=== PATIENT | male | born 1980 | race Hispanic/Latino ===

== ENCOUNTER 2019-05-09 23:32 | Emergency (ER) | payer OTHER ==
[2019-05-10 00:14] LABS: Absolute Lymphocytes (CBC) 0.9 K/uL (0.7-4.9); Basophils % 0.4 % (0-1.3); Hematocrit 46.8 % (39.6-49.0); Lymphocytes % 9.1 % (15.3-44.8); MPV 9.2 fL (7.6-11.3); Monocytes % 4.7 % (3.3-12.3); RBC Red Blood Cell Count 5.14 M/uL (4.33-5.43)
[2019-05-10 00:24] LABS: Albumin 4.7 g/dL (3.4-5.0); Bilirubin Direct 0.2 mg/dL (0-0.2); Bilirubin Total 0.7 mg/dL (0.2-1.0); Potassium 3.6 mmol/L (3.5-5.1); Protein, Total 8.5 g/dL (6.4-8.2)
[2019-05-10] MEDS ORDERED: MAGNE/ALUM HYDROXD 30 ML UCUP ONE (00:38)
[2019-05-10] MEDS ORDERED: FAMOTIDINE 20 MG/2 ML VIAL IV ONE (00:38)
[2019-05-10] MEDS ORDERED: LIDOCAINE VISCOUS 2% SOLN 15 ML UDC ONE (00:40)
[2019-05-10 01:09] LABS: Blood Morphology Comment NOT SEEN (NOT SEEN); Platelet Estimate ADEQ
[2019-05-10] MEDS ORDERED: KETOROLAC 30 MG/ML INJ ONE (01:27)
--- NOTE | 2019-05-10 02:06 | EDPHYS ---
Physician Documentation [facility] Name: Kody Fowler Age: 38 yrs Sex: Male : 1980 Arrival Date: 05/09/2019 Time: 23:36 Bed 20 Private MD: ED Physician Gilbert Fish HPI: 05/10 00:19 This 38 yrs old Male presents to ER via Ambulatory with complaints of kb Abdominal Pain, Vomiting/Diarrhea. 00:19 The patient presents with abdominal pain in the epigastric area. Onset: The kb symptoms/episode began/occurred this morning. The symptoms do not radiate. Associated signs and symptoms: none. The symptoms are described as constant. Modifying factors: The symptoms are alleviated by nothing, the symptoms are aggravated by nothing. Severity of pain: At its worst the pain was moderate severe in the emergency department the pain is unchanged. The patient has experienced similar episodes in the past, multiple times. The patient has not recently seen a physician. Pt reports epigastric pain after eating pizza this morning. States he has had the exact same pain several times in the past and has been evaluated at the [facility]. States they told him it could be ulcers. . Historical: - Allergies: 05/09 23:46 No Known Allergies; ak1 - Home Meds: 23:46 None [Active]; ak1 - PMHx: 23:46 Ulcers; ak1 - PSHx: 23:46 Hernia repair; ak1 - Immunization history:: Adult Immunizations unknown. - Social history:: Smoking status: Patient/guardian denies using tobacco. - Ebola Screening: : No symptoms or risks identified at this time. ROS: 05/10 00:18 Constitutional: Negative for fever, chills, and weight loss, ENT: Negative for injury, kb pain, and discharge, Neck: Negative for injury, pain, and swelling, Cardiovascular: Negative for chest pain, palpitations, and edema, Respiratory: Negative for shortness of breath, cough, wheezing, and pleuritic chest pain, Back: Negative for injury and pain, : Negative for injury, bleeding, discharge, and swelling, MS/Extremity: Negative for injury and deformity, Skin: Negative for injury, rash, and discoloration, Neuro: Negative for headache, weakness, numbness, tingling, and seizure. Abdomen/GI: Positive for abdominal pain, Negative for nausea, vomiting, and diarrhea, constipation, abdominal cramps, abdominal distension, anorexia. Exam: 00:18 Head/Face: Normocephalic, atraumatic. Neck: Trachea midline, no thyromegaly or masses kb palpated, and no cervical lymphadenopathy. Supple, full range of motion without nuchal rigidity, or vertebral point tenderness. No Meningismus. Chest/axilla: Normal chest wall appearance and motion. Nontender with no deformity. No lesions are appreciated. Cardiovascular: Regular rate and rhythm with a normal S1 and S2. No gallops, murmurs, or rubs. Normal PMI, no JVD. No pulse deficits. Respiratory: Lungs have equal breath sounds bilaterally, clear to auscultation and percussion. No rales, rhonchi or wheezes noted. No increased work of breathing, no retractions or nasal flaring. Back: No spinal tenderness. No costovertebral tenderness. Full range of motion. Skin: Warm, dry with normal turgor. Normal color with no rashes, no lesions, and no evidence of cellulitis. MS/ Extremity: Pulses equal, no cyanosis. Neurovascular intact. Full, normal range of motion. Neuro: Awake and alert, GCS 15, oriented to person, place, time, and situation. Cranial nerves II-XII grossly intact. Motor strength 5/5 in all extremities. Sensory grossly intact. Cerebellar exam normal. Normal gait. 00:18 Constitutional: The patient appears alert, awake, uncomfortable. 00:18 Abdomen/GI: Inspection: abdomen appears normal, Bowel sounds: normal, in all quadrants, Palpation: soft, in all quadrants, moderate abdominal tenderness, in the epigastric area. Vital Signs: 05/09 23:43 BP 122 / 77; Pulse 53; Resp 20; Temp 97.8; Pulse Ox 100% on R/A; Weight 95.25 kg (R); ak1 Height 6 ft. 1 in. (185.42 cm) (R); Pain 08/08; 05/10 00:40 BP 142 / 82; Pulse 54; Resp 19 S; Pulse Ox 99% on R/A; cc3 01:30 BP 120 / 82; Pulse 61; Resp 17 S; Pulse Ox 96% on R/A; Pain 2/10; cc3 02:15 BP 122 / 75; Pulse 60; Resp 16 S; Pulse Ox 98% on R/A; Pain 0/10; cc3 05/09 23:43 Body Mass Index 27.71 (95.25 kg, 185.42 cm) ak1 MDM: 05/09 23:40 Patient medically screened. 05/10 00:18 Data reviewed: vital signs, nurses notes. Data interpreted: Pulse oximetry: on room air kb is 100 %. Interpretation: normal. 02:05 Counseling: I had a detailed discussion with the patient and/or guardian regarding: the kb historical points, exam findings, and any diagnostic results supporting the discharge/admit diagnosis, lab results, radiology results, the need for outpatient follow up, a family practitioner, to return to the emergency department if symptoms worsen or persist or if there are any questions or concerns that arise at home. 05/09 23:48 Order name: Basic Metabolic Panel; Complete Time: 00:30 kb 05/09 23:48 Order name: CBC with Diff; Complete Time: 01:10 kb 05/09 23:48 Order name: Hepatic Function; Complete Time: 00:30 kb 05/09 23:48 Order name: Lipase; Complete Time: 00:30 kb 05/10 00:21 Order name: Manual Differential; Complete Time: 01:10 EDMS 07 00:31 Order name: CT Abd/Pelvis - IV Contrast Only kb 05/09 23:48 Order name: IV Saline Lock; Complete Time: 00:03 kb 05/09 23:48 Order name: Labs collected and sent; Complete Time: 00:03 kb 05/10 00:17 Order name: EKG; Complete Time: 00:17 kb 05/10 00:17 Order name: EKG - Nurse/Tech; Complete Time: 00:38 kb Administered Medications: 00:25 Drug: Pepcid 20 mg Route: IVP; Site: right antecubital; cc3 01:05 Follow up: Response: No adverse reaction; Pain is unchanged, physician notified cc3 00:25 Drug: GI Cocktail without - (Maalox Suspension 30 ml, Lidocaine Liquid 2 % 15 cc3 ml) Route: PO; 01:05 Follow up: Response: No adverse reaction; Pain is unchanged, physician notified cc3 01:10 Drug: TORadol - Ketorolac 15 mg Route: IVP; Site: right antecubital; cc3 01:30 Follow up: Response: No adverse reaction; Pain is decreased cc3 Disposition: 21:22 Co-signature as Attending Physician, Gilbert Fish MD. Disposition: 05/10/19 02:05 Discharged to Home. Impression: Upper abdominal pain, unspecified. - Condition is Stable. - Discharge Instructions: Abdominal Pain, Adult, [id number]. - Prescriptions for Tramadol 50 mg Oral Tablet - take 1 tablet by ORAL route every 8 hours as needed; 12 tablet. Zofran 4 mg Oral Tablet - take 1 tablet by ORAL route every 6 hours As needed; 10 tablet. - Medication Reconciliation Form, Thank You Letter, Antibiotic Education, Prescription Opioid Use form. - Follow up: Emergency Department; When: As needed; Reason: Worsening of condition. Follow up: Private Physician; When: 2 - 3 days; Reason: Recheck today's complaints, Continuance of care, Re-evaluation by your physician. Signatures: Dispatcher [employer] EDMT Billie Canales, SUSAN FLORES-Betty Fernandez RN RN ak1 Gilbert Fish MD MD Cortney Nguyen cc3 Corrections: (The following items were deleted from the chart) 02:22 02:05 05/10/2019 02:05 Discharged to Home. Impression: Upper abdominal pain, cc3 unspecified. Condition is Stable. Forms are Medication Reconciliation Form, Thank You Letter, Antibiotic Education, Prescription Opioid Use. Follow up: Emergency Department; When: As needed; Reason: Worsening of condition. Follow up: Private Physician; When: 2 - 3 days; Reason: Recheck today's complaints, Continuance of care, Re-evaluation by your physician. kb
--- NOTE | 2019-05-10 02:06 | ER ---
Nurse's Notes [facility] Name: Kody Fowler Age: 38 yrs Sex: Male : 1980 Arrival Date: 05/09/2019 Time: 23:36 Bed 20 Private MD: Diagnosis: Upper abdominal pain, unspecified Presentation: 05/09 23:44 Presenting complaint: Patient states: epigastric pain since 0900 after eating pizza for ak1 breakfast. pt c/o N/V/D. Transition of care: patient was not received from another setting of care. Onset of symptoms was May 09, 2019. Risk Assessment: Do you want to hurt yourself or someone else? Patient reports no desire to harm self or others. Initial Sepsis Screen: Does the patient meet any 2 criteria? No. Patient's initial sepsis screen is negative. Does the patient have a suspected source of infection? No. Patient's initial sepsis screen is negative. Care prior to arrival: None. 23:44 Acuity: JENN 3 ak1 23:44 Method Of Arrival: Ambulatory ak1 Triage Assessment: 23:46 General: Appears in no apparent distress. Behavior is calm, cooperative. Pain: ak1 Complains of pain in epigastric area. Historical: - Allergies: 23:46 No Known Allergies; ak1 - Home Meds: 23:46 None [Active]; ak1 - PMHx: 23:46 Ulcers; ak1 - PSHx: 23:46 Hernia repair; ak1 - Immunization history:: Adult Immunizations unknown. - Social history:: Smoking status: Patient/guardian denies using tobacco. - Ebola Screening: : No symptoms or risks identified at this time. Screenin:46 Abuse screen: Denies threats or abuse. Denies injuries from another. Nutritional ak1 screening: No deficits noted. Tuberculosis screening: No symptoms or risk factors identified. Fall Risk None identified. Assessment: 05/10 00:08 General: Appears in no apparent distress. uncomfortable, Behavior is cooperative, cc3 appropriate for age. Pain: Complains of pain in epigastric area. Neuro: Level of Consciousness is awake, alert, obeys commands, Oriented to person, place, time, situation, Appropriate for age. Cardiovascular: Capillary refill < 3 seconds Patient's skin is warm and dry. Rhythm is sinus bradycardia. Respiratory: Airway is patent Respiratory effort is even, unlabored, Respiratory pattern is regular, symmetrical. GI: Abdomen is flat, Bowel sounds present X 4 quads. Abd is soft and non tender X 4 quads. : No signs and/or symptoms were reported regarding the genitourinary system. EENT: No signs and/or symptoms were reported regarding the EENT system. Derm: Skin is intact, is healthy with good turgor, Skin is pink, warm \T\ dry. normal, Skin temperature is warm. Musculoskeletal: Circulation, motion, and sensation intact. Range of motion: intact in all extremities. 01:05 Reassessment: Patient appears in no apparent distress at this time. Patient and/or cc3 family updated on plan of care and expected duration. Pain level reassessed. Patient is alert, oriented x 3, equal unlabored respirations, skin warm/dry/pink. Patient came back from CT scan department, awaiting result. Patient said he is still having epigastric pain, JODI Canales informed, new order made and carried out. 02:20 Reassessment: Patient appears in no apparent distress at this time. Patient and/or cc3 family updated on plan of care and expected duration. Pain level reassessed. Patient is alert, oriented x 3, equal unlabored respirations, skin warm/dry/pink. JODI Canales discharged the patient home with prescriptions given. IV cannula removed and patient left ER vitally stable and ambulatory. No valuables left in the patient's room. Patient denies pain at this time. Patient states feeling better. Patient states symptoms have improved. Vital Signs: 05/09 23:43 BP 122 / 77; Pulse 53; Resp 20; Temp 97.8; Pulse Ox 100% on R/A; Weight 95.25 kg (R); ak1 Height 6 ft. 1 in. (185.42 cm) (R); Pain 10; 05/10 00:40 BP 142 / 82; Pulse 54; Resp 19 S; Pulse Ox 99% on R/A; cc3 01:30 BP 120 / 82; Pulse 61; Resp 17 S; Pulse Ox 96% on R/A; Pain 2/10; cc3 02:15 BP 122 / 75; Pulse 60; Resp 16 S; Pulse Ox 98% on R/A; Pain 0/10; cc3 05/09 23:43 Body Mass Index 27.71 (95.25 kg, 185.42 cm) ak1 ED Course: 05/09 23:36 Patient arrived in ED. mr 23:40 Bill[facility]ales [facility] kb 23:40 Gilbert Fish MD is Attending Physician. kb 23:43 Arm band placed on Patient placed in an exam room, on a stretcher, on pulse oximetry, ak1 Patient notified of wait time. 23:45 Triage completed. ak1 23:45 Urine collected: clean catch specimen, clear, andrei colored. jp3 23:46 Patient has correct armband on for positive identification. Placed in gown. Bed in low ak1 position. Call light in reach. Side rails up X 1. Pulse ox on. NIBP on. 05/10 00:00 Initial lab(s) drawn, by me, sent to lab. Inserted saline lock: 20 gauge in right jp3 antecubital area, using aseptic technique. Blood collected. 00:03 Basic Metabolic Panel Sent. jp3 00:03 CBC with Diff Sent. jp3 00:03 Hepatic Function Sent. jp3 00:03 Lipase Sent. jp3 00:08 Cortney Nguyen is Primary Nurse. cc3 01:02 CT completed. Patient tolerated procedure well. Patient moved to CT via wheelchair. Patient moved back from CT. 01:23 CT Abd/Pelvis - IV Contrast Only In Process Unspecified. EDMS 02:20 No provider procedures requiring assistance completed. IV discontinued, intact, cc3 bleeding controlled, No redness/swelling at site. Pressure dressing applied. Administered Medications: 00:25 Drug: Pepcid 20 mg Route: IVP; Site: right antecubital; cc3 01:05 Follow up: Response: No adverse reaction; Pain is unchanged, physician notified cc3 00:25 Drug: GI Cocktail without - (Maalox Suspension 30 ml, Lidocaine Liquid 2 % 15 cc3 ml) Route: PO; 01:05 Follow up: Response: No adverse reaction; Pain is unchanged, physician notified cc3 01:10 Drug: TORadol - Ketorolac 15 mg Route: IVP; Site: right antecubital; cc3 01:30 Follow up: Response: No adverse reaction; Pain is decreased cc3 Outcome: 02:05 Discharge ordered by . kb 02:20 Discharged to home ambulatory. cc3 02:20 Condition: stable 02:20 Discharge instructions given to patient, Instructed on discharge instructions, follow up and referral plans. medication usage, Demonstrated understanding of instructions, follow-up care, medications, Prescriptions given X 2. 02:22 Patient left the ED. cc3 Signatures: Dispatcher [employer] EDMS Billie Canales, SUSAN [employer] SUPPL[employer] AIDE-Razia Lin Ervin eh Krenek, Amber, RN RN ak1 Shane Green jp3 Cortney Nguyen cc3 Corrections: (The following items were deleted from the chart) 01:48 01:30 BP 120 / 82; Pulse 61bpm; Resp 17bpm; Spontaneous; Pulse Ox 96% RA; cc3 cc3
--- NOTE | 2019-05-10 07:34 | EKG ---
Test Date: 2019-05-10 Test Time: 00:36:01 Forest Fire Officer: STEFANY MEASUREMENT RESULTS: Intervals: Rate: 46 MO: 138 QRSD: 100 QT: 458 QTc: 400 [place]: P: 42 MO: 138 QRS: 33 T: 37 INTERPRETIVE STATEMENTS: Marked sinus bradycardia with sinus arrhythmia RSR' or QR pattern in V1 suggests right ventricular conduction delay Abnormal ECG No previous ECG available for comparison Electronically Signed On 05-10-19 07:33:43 CDT by Toni Padilla
--- NOTE | 2019-05-10 12:01 | RAD REPORT ---
EXAM DESCRIPTION: Abdomen Pelvis W Contrast CLINICAL HISTORY: ABD PAIN COMPARISON: None. TECHNIQUE: CT ABDOMEN PELVIS WITH IV CONTRAST on 05/10/2019 12:31 AM CDT This exam was performed according to our departmental dose-optimization program, which includes autom ated exposure control, adjustment of the mA and/or kV according to patient size and/or use of iterati ve reconstruction technique. FINDINGS: Lower lungs are clear. Abdomen: The liver is normal in appearance. There is no biliary dilatation. There are small layering stones within the gallbladder. The pancreas and spleen are normal in appearance. The adrenal glands a nd kidneys are unremarkable. Abdominal aorta is normal in course and caliber without aneurysm. There is no free air. There is no r etroperitoneal adenopathy. Pelvis: There is no bowel obstruction. Urinary bladder is unremarkable. There is no free fluid. Appen maria elena is normal. Skeleton: There are no acute osseous findings. No suspicious bony lesions. IMPRESSION: No acute inflammatory process. No renal or ureteral calculi. Electronically signed by: Luis Alberto Torres MD 05/10/2019 1:29 AM CDT Due to temporary technical issues with the PACS/Fluency reporting system, reports are being signed by the in house radiologist as a courtesy to ensure prompt reporting. The interpreting radiologist is f ully responsible for the content of the report.
== END 2019-05-10 02:22 | disposition home or self-care (01) ==
LOC: ER 23:32
DX: R10.10 Upper abdominal pain, unspecified (principal)
CPT/HCPCS: 36415; 74177; 80048; 80076; 83690; 85025; 93005; 96374; 96375; 99285; Q9967

== ENCOUNTER 2019-05-14 14:15 | Observation (INO) | payer OTHER ==
[2019-05-14] MEDS ORDERED: KETOROLAC 30 MG/ML INJ ONE (16:22)
[2019-05-14] MEDS ORDERED: NA CHLORIDE 0.9% 1,000 ML ONE (16:22)
--- NOTE | 2019-05-14 16:24 | RAD REPORT ---
EXAM DESCRIPTION: US - Abdomen Exam Limited - 05/14/2019 4:00 pm CLINICAL HISTORY: EPIGASTRIC PAIN COMPARISON: No comparisons FINDINGS: The gallbladder demonstrates shadowing gallstones and sludge in the gallbladder. The wall is thickened to about 5 mm. The common bile duct is normal measuring 3 mm. The liver demonstrates no findings of intrahepatic biliary dilatation. IMPRESSION: Gallbladder stones and sludge present with wall thickening, may indicate acute cholecyst itis in the correct clinical setting.
[2019-05-14 16:28] LABS: Absolute Lymphocytes (CBC) 0.9 K/uL (0.7-4.9); Basophils % 0.5 % (0-1.3); Eosinophils % 0.4 % (0-4.4); Hematocrit 43.8 % (39.6-49.0); Lymphocytes % 9.3 % (15.3-44.8); MPV 8.8 fL (7.6-11.3); Monocytes % 7.8 % (3.3-12.3); RBC Red Blood Cell Count 4.77 M/uL (4.33-5.43)
[2019-05-14 16:47] LABS: Bilirubin Direct 0.2 mg/dL (0-0.2); Bilirubin Total 0.6 mg/dL (0.2-1.0); Potassium 3.7 mmol/L (3.5-5.1); Protein, Total 7.5 g/dL (6.4-8.2)
--- NOTE | 2019-05-14 17:02 | EDPHYS ---
Physician Documentation [facility] Name: Kody Fowler Age: 38 yrs Sex: Male : 1980 Arrival Date: 05/14/2019 Time: 14:21 Bed 24 Private MD: ED Physician Javier Vazquez HPI: 05/14 15:39 This 38 yrs old Male presents to ER via EMS with complaints of Epigastric Pain.pm1 15:39 The patient presents with abdominal pain in the epigastric area. pm1 15:39 Onset: The symptoms/episode began/occurred 5 day(s) ago. The symptoms radiate to back. pm1 Associated signs and symptoms: Pertinent positives: Vomiting that has resolved since, Pertinent negatives: chest pain, constipation, diarrhea, dysuria, fever, shortness of breath. The symptoms are described as achy, burning. Modifying factors: the symptoms are aggravated by food. Severity of pain: in the emergency department the pain has improved. The patient has been recently seen at the [facility], last week, for similar complaints labs were performed, CT scan was performed. Historical: - Allergies: 14:26 No Known Allergies; aj1 - Home Meds: 14:26 None [Active]; aj1 - PMHx: 14:26 Ulcers; aj1 - PSHx: 14:26 Hernia repair; aj1 - Immunization history:: Adult Immunizations up to date. - Social history:: Smoking status: Patient/guardian denies using tobacco. - Ebola Screening: : Patient denies travel to an Ebola-affected area in the 21 days before illness onset. ROS: 15:39 Constitutional: Negative for fever, chills, and weight loss, Eyes: Negative for injury, pm1 pain, redness, and discharge, ENT: Negative for injury, pain, and discharge, Neck: Negative for injury, pain, and swelling, Cardiovascular: Negative for chest pain, palpitations, and edema, Respiratory: Negative for shortness of breath, cough, wheezing, and pleuritic chest pain. 15:39 Back: Negative for injury and pain, : Negative for injury, bleeding, discharge, and swelling, MS/Extremity: Negative for injury and deformity, Skin: Negative for injury, rash, and discoloration, Neuro: Negative for headache, weakness, numbness, tingling, and seizure. 15:39 Abdomen/GI: Positive for abdominal pain, nausea and vomiting, of the epigastric area, Negative for diarrhea, constipation. Exam: 15:39 Constitutional: This is a well developed, well nourished patient who is awake, alert, pm1 and in no acute distress. Head/Face: Normocephalic, atraumatic. Neck: Trachea midline, no thyromegaly or masses palpated, and no cervical lymphadenopathy. Supple, full range of motion without nuchal rigidity, or vertebral point tenderness. No Meningismus. Chest/axilla: Normal chest wall appearance and motion. Nontender with no deformity. No lesions are appreciated. Cardiovascular: Regular rate and rhythm with a normal S1 and S2. No gallops, murmurs, or rubs. Normal PMI, no JVD. No pulse deficits. Respiratory: Lungs have equal breath sounds bilaterally, clear to auscultation and percussion. No rales, rhonchi or wheezes noted. No increased work of breathing, no retractions or nasal flaring. 15:39 Back: No spinal tenderness. No costovertebral tenderness. Full range of motion. Skin: Warm, dry with normal turgor. Normal color with no rashes, no lesions, and no evidence of cellulitis. MS/ Extremity: Pulses equal, no cyanosis. Neurovascular intact. Full, normal range of motion. 15:39 Abdomen/GI: Inspection: abdomen appears normal, Bowel sounds: normal, Palpation: soft, mild abdominal tenderness, in the epigastric area, mass, is not appreciated, rebound tenderness, is not appreciated. 15:39 Neuro: Orientation: is normal, Motor: is normal, moves all fours, Sensation: is normal, no obvious gross deficits, Gait: is steady, at a normal pace, without difficulty. Vital Signs: 14:26 BP 111 / 75; Pulse 67; Resp 14; Temp 97.8; Pulse Ox 100% on R/A; Weight 95.25 kg (R); aj1 Height 6 ft. 1 in. (185.42 cm) (R); Pain 3/10; 15:30 BP 103 / 65; Pulse 61; Resp 18; Pulse Ox 97% on R/A; aj1 16:30 BP 103 / 72; Pulse 65; Resp 18; Pulse Ox 98% on R/A; aj1 17:30 BP 99 / 60; Pulse 62; Resp 18; Pulse Ox 97% on R/A; aj1 18:30 BP 102 / 70; Pulse 60; Resp 16; Pulse Ox 100% on R/A; aj1 19:36 BP 117 / 62; Pulse 80; Resp 18; Pulse Ox 100% on R/A; aj1 14:26 Body Mass Index 27.71 (95.25 kg, 185.42 cm) [facility] MDM: 15:08 Patient medically screened. [facility] 15:49 Data reviewed: vital signs. Data interpreted: Pulse oximetry: on room air is 100 %. pm1 Interpretation: normal. 16:41 Counseling: I had a detailed discussion with the patient and/or guardian regarding: the pm1 historical points, exam findings, and any diagnostic results supporting the discharge/admit diagnosis, lab results, radiology results, the need for further work-up and treatment in the hospital. 05/14 15:34 Order name: Basic Metabolic Panel; Complete Time: 16:56 pm1 05/14 15:34 Order name: CBC with Diff; Complete Time: 16:34 pm1 05/14 15:34 Order name: Creatinine for Radiology; Complete Time: 16:57 pm1 05/14 15:34 Order name: Hepatic Function; Complete Time: 16:56 pm1 05/14 15:34 Order name: Lipase; Complete Time: 16:57 pm1 05/14 16:48 Order name: Urine Dipstick--Ancillary (enter results); Complete Time: 17:06 bd 05/14 15:34 Order name: IV Saline Lock; Complete Time: 16:15 pm1 05/14 15:34 Order name: Labs collected and sent; Complete Time: 16:15 pm05/14 15:34 Order name: US Abdomen Limited; Complete Time: 16:26 pm1 05/14 15:34 Order name: Urine Dipstick-Ancillary (obtain specimen); Complete Time: 16:25 pm1 05/14 17:14 Order name: Cholangiogram EDNY 05/14 16:40 Order name: NPO; Complete Time: 16:42 pm1 Administered Medications: 16:19 Drug: NS 0.9% 1000 ml Route: IV; Rate: 1000 ml; Site: right antecubital; [facility] 17:30 Follow up: IV Status: Completed infusion; IV Intake: 1000ml [facility] 17:08 Drug: Zosyn 3.375 grams Route: IVPB; Infused Over: 60 mins; Site: right antecubital; aj1 18:10 Follow up: IV Status: Completed infusion; IV Intake: 100ml [facility] 18:59 Not Given (Patient Refused): TORadol 30 mg IVP once aj1 Disposition: 05/15 05:53 Co-signature as Attending Physician, Javier Vazquez MD I agree with the assessment and ben plan of care. Disposition: 05/14/19 17:00 Hospitalization ordered by Delio Francis for Observation. Preliminary diagnosis is Cholecystitis. - Bed requested for Telemetry/MedSurg (observation). - Status is Observation. ca1 - Condition is Stable. - Problem is new. - Symptoms have improved. UTI on Admission? No Signatures: Dispatcher [employer] EDMS Luz Elena Magallon Angela, RN RN aj1 Javier Vazquez MD MD cha Marinas, Patrick, FILE KEEPER FILE KEEPER pm1 Yuliya Roe RN RN ca1 Corrections: (The following items were deleted from the chart) 05/14 18:28 17:00 Hospitalization Ordered by Delio Francis MD for Observation. Preliminary bd diagnosis is Cholecystitis. Bed requested for Telemetry/MedSurg (observation). Status is Observation. Condition is Stable. Problem is new. Symptoms have improved. UTI on Admission? No. pm1 20:24 18:28 05/14/2019 17:00 Hospitalization Ordered by Delio Francis MD for Observation. ca1 Preliminary diagnosis is Cholecystitis. Bed requested for Telemetry/MedSurg (observation). Status is Observation. Condition is Stable. Problem is new. Symptoms have improved. UTI on Admission? No. bd
--- NOTE | 2019-05-14 17:02 | ER ---
Nurse's Notes [facility] Name: Kody Fowler Age: 38 yrs Sex: Male : 1980 Arrival Date: 05/14/2019 Time: 14:21 Bed 24 Private MD: Diagnosis: Cholecystitis Presentation: 05/14 14:22 Presenting complaint: Patient states: He was inside at work when he suddenly started aj1 having severe epigastric pain that radiates to the back. Patient reports that he was seen in this ER last week for the same complaint and discharged home. Patient reports abdominal pain, nausea, denies V/D. EMS personnel state that patient was diaphoretic on arrival. 20g IV was initiated en rote and patient was medicated with 100 mcg Fentanyl IV and 4mg of Zofran IV. Patient reports pain was 10/10 on EMS arrival. Pain is currently 3/10. Transition of care: patient was not received from another setting of care. Onset of symptoms was May 14, 2019. Risk Assessment: Do you want to hurt yourself or someone else? Patient reports no desire to harm self or others. Initial Sepsis Screen: Does the patient meet any 2 criteria? No. Patient's initial sepsis screen is negative. Does the patient have a suspected source of infection? No. Patient's initial sepsis screen is negative. Care prior to arrival: None. 14:22 Method Of Arrival: EMS: [facility] aj 14:22 Acuity: JENN 3 aj1 Triage Assessment: 14:26 General: Appears in no apparent distress. comfortable, Behavior is calm, cooperative, aj1 appropriate for age. Pain: Complains of pain in epigastric area Pain radiates to back Pain currently is 3 out of 10 on a pain scale. at worst was 10 out of 10 on a pain scale. GI: Reports upper abdominal pain. Historical: - Allergies: 14:26 No Known Allergies; aj1 - Home Meds: 14:26 None [Active]; aj1 - PMHx: 14:26 Ulcers; aj1 - PSHx: 14:26 Hernia repair; aj1 - Immunization history:: Adult Immunizations up to date. - Social history:: Smoking status: Patient/guardian denies using tobacco. - Ebola Screening: : Patient denies travel to an Ebola-affected area in the 21 days before illness onset. Screenin:29 Abuse screen: Denies threats or abuse. Denies injuries from another. Nutritional aj1 screening: No deficits noted. Tuberculosis screening: No symptoms or risk factors identified. 20:01 Fall Risk No fall in past 12 months (0 pts). No secondary diagnosis (0 pts). IV access aj1 (20 points). Ambulatory Aid- None/Bed Rest/Nurse Assist (0 pts). Gait- Normal/Bed Rest/Wheelchair (0 pts) Mental Status- Oriented to own ability (0 pts). Total Huynh Fall Scale indicates No Risk (0-24 pts). Assessment: 14:29 General: Appears in no apparent distress. comfortable, Behavior is calm, cooperative, aj1 appropriate for age. Pain: Complains of pain in epigastric area Pain radiates to back Pain currently is 3 out of 10 on a pain scale. Pain began suddenly. Neuro: Level of Consciousness is awake, alert, obeys commands, Oriented to person, place, time, situation, Speech is normal. Cardiovascular: Patient's skin is warm and dry. Respiratory: Airway is patent Respiratory effort is even, unlabored, Respiratory pattern is regular, symmetrical. GI: Abdomen is flat, non-distended, Bowel sounds present X 4 quads. Abd is soft X 4 quads Reports nausea, Patient currently denies diarrhea, vomiting. : No signs and/or symptoms were reported regarding the genitourinary system. EENT: No signs and/or symptoms were reported regarding the EENT system. Derm: No signs and/or symptoms reported regarding the dermatologic system. Skin is pink, warm \T\ dry. normal. Musculoskeletal: No signs and/or symptoms reported regarding the musculoskeletal system. Circulation, motion, and sensation intact. 15:30 Reassessment: Patient appears in no apparent distress at this time. No changes from aj1 previously documented assessment. Patient and/or family updated on plan of care and expected duration. Pain level reassessed. Patient is alert, oriented x 3, equal unlabored respirations, skin warm/dry/pink. 16:20 Reassessment: Patient states that his pain is still well controlled from the pain aj1 medication he received on the ambulance. States he does not want the Toradol right now and will notify staff if he changes his mind. 16:37 Reassessment: Patient appears in no apparent distress at this time. No changes from aj1 previously documented assessment. Patient and/or family updated on plan of care and expected duration. Pain level reassessed. Patient is alert, oriented x 3, equal unlabored respirations, skin warm/dry/pink. 17:30 Reassessment: Patient and/or family updated on plan of care and expected duration. Pain aj1 level reassessed. General: Appears in no apparent distress. comfortable, Behavior is calm, cooperative, appropriate for age. Pain: Denies pain. Neuro: Level of Consciousness is awake, alert, obeys commands, Oriented to person, place, time, situation. Cardiovascular: Patient's skin is warm and dry. Rhythm is sinus rhythm. Respiratory: Airway is patent Respiratory effort is even, unlabored, Respiratory pattern is regular, symmetrical. GI: Abdomen is flat, non-distended. Derm: No signs and/or symptoms reported regarding the dermatologic system. Skin is pink, warm \T\ dry. normal. Musculoskeletal: No signs and/or symptoms reported regarding the musculoskeletal system. Circulation, motion, and sensation intact. 17:40 Reassessment: Dr. Francis at bedside. aj1 18:30 Reassessment: Patient appears in no apparent distress at this time. No changes from aj1 previously documented assessment. Patient and/or family updated on plan of care and expected duration. Pain level reassessed. Patient is alert, oriented x 3, equal unlabored respirations, skin warm/dry/pink. 18:45 Reassessment: Obtained consent for laproscopic cholecystectomy. aj1 19:30 Reassessment: Attempted to call report to 4th floor, receiving nurse will call back. aj1 19:36 Reassessment: Patient appears in no apparent distress at this time. No changes from aj1 previously documented assessment. Patient and/or family updated on plan of care and expected duration. Pain level reassessed. Patient is alert, oriented x 3, equal unlabored respirations, skin warm/dry/pink. 19:37 Reassessment: Patient transported to [facility] via wheelchair. aj1 19:42 Reassessment: Attempted to give report to 4th floor, patient has not been assigned to a [facility] nurse, receiving nurse will call back. 19:50 Reassessment: Attempted to give report to 4th floor, spoke with AUSTIN Quijanorn relief charge nurse on [facility] 4th floor, states receiving nurse will call back for report. Vital Signs: 14:26 BP 111 / 75; Pulse 67; Resp 14; Temp 97.8; Pulse Ox 100% on R/A; Weight 95.25 kg (R); aj1 Height 6 ft. 1 in. (185.42 cm) (R); Pain 3/10; 15:30 BP 103 / 65; Pulse 61; Resp 18; Pulse Ox 97% on R/A; aj1 16:30 BP 103 / 72; Pulse 65; Resp 18; Pulse Ox 98% on R/A; aj1 17:30 BP 99 / 60; Pulse 62; Resp 18; Pulse Ox 97% on R/A; aj1 18:30 BP 102 / 70; Pulse 60; Resp 16; Pulse Ox 100% on R/A; aj1 19:36 BP 117 / 62; Pulse 80; Resp 18; Pulse Ox 100% on R/A; aj1 14:26 Body Mass Index 27.71 (95.25 kg, 185.42 cm) aj1 ED Course: 14:21 Patient arrived in ED. aj1 14:25 Triage completed. aj1 14:26 Arm band placed on. aj1 14:29 Patient has correct armband on for positive identification. Bed in low position. Call aj1 light in reach. Side rails up X 1. 14:29 No provider procedures requiring assistance completed. aj1 15:08 Henry Gloria NP is PHCP. pm1 15:08 Javier Vazquez MD is Attending Physician. pm1 15:42 Kyra Miller RN is Primary Nurse. aj1 16:02 US Abdomen Limited In Process Unspecified. EDMS 16:09 Ultrasound completed. hr 16:20 Urine collected: clean catch specimen, clear, andrei colored. aj1 17:00 Delio Francis MD is Hospitalizing Provider. pm1 19:53 Report given to AUSTIN Mcdaniels on 4th floor. aj1 20:02 Patient admitted, IV remains in place. aj1 Administered Medications: 16:19 Drug: NS 0.9% 1000 ml Route: IV; Rate: 1000 ml; Site: right antecubital; aj1 17:30 Follow up: IV Status: Completed infusion; IV Intake: 1000ml aj1 17:08 Drug: Zosyn 3.375 grams Route: IVPB; Infused Over: 60 mins; Site: right antecubital; aj1 18:10 Follow up: IV Status: Completed infusion; IV Intake: 100ml aj 18:59 Not Given (Patient Refused): TORadol 30 mg IVP once aj Intake: 17:30 IV: 1000ml; Total: 1000ml. aj1 18:10 IV: 100ml; Total: 1100ml. aj1 Outcome: 17:00 Decision to Hospitalize by Provider. pm1 20:02 Admitted to Med/surg accompanied by tech, via wheelchair. aj1 20:02 Condition: stable 20:02 Discharge instructions given to patient, Instructed on the need for admit, Demonstrated understanding of instructions. 20:24 Patient left the ED. ca1 Signatures: Dispatcher [employer] EDKyra Santos RN RN aj1 Karey Johnson Patrick, CAREER AGENT CAREER AGENT pm1 Yuliya Roe RN RN ca1 Corrections: (The following items were deleted from the chart) 18:58 16:30 IV Status: Completed infusion; IV Intake: 1000ml [place] [id number]
[2019-05-14 17:04] LABS: Urine Blood NEGATIVE (NEG); Urine Glucose NEGATIVE (NEG); Urine Protein 1+ (NEG); Urine pH >8.5 (5.0-7.0)
[2019-05-14] MEDS ORDERED: PIPER/TAZO/NS 3.375gm 3.375 GM/100 ML BAG ONE (17:10)
[2019-05-14] MEDS ORDERED: ONDANSETRON 4 MG/2 ML VIAL IV PRN (20:20)
--- NOTE | 2019-05-14 20:32 | RAD REPORT ---
EXAM DESCRIPTION: MRI - Cholangiogram - 05/14/2019 8:09 pm CLINICAL HISTORY: abd pain Abdominal pain and vomiting. COMPARISON: Abdomen Exam Limited dated 05/14/2019; Abdomen Pelvis W Contrast dated 05/10/2019 FINDINGS: Three-dimensional MRCP was performed using maximum intensity projection reconstruction on the same work station. No intrahepatic biliary tree dilatation is seen. The common bile duct is normal caliber without evide nce of retained stone, stricture or mass. The pancreatic duct is not pathologically dilated. Small stones are present in the gallbladder with mild thickening of the gallbladder wall. Limited T2 sequences through the abdomen demonstrates no bulky adenopathy, significant free fluid or abscess. IMPRESSION: No pathologic biliary tree abnormality seen. Cholelithiasis with mildly thickened gallbladder wall.
[2019-05-14] MEDS: NA CHLORIDE 0.9% 1,000 ML IV SCH (21:15)
[2019-05-14] MEDS: PIPER/TAZO/NS 3.375gm 3.375 GM/100 ML BAG IVPB SCH (23:59)
[2019-05-15] MEDS ORDERED: PIPERACIL/TAZO 3.375 GM VIAL IV ONE (00:06)
[2019-05-15] MEDS ORDERED: NA CHLORIDE 0.9% 200 ML ONE (00:22)
[2019-05-15 04:31] LABS: Absolute Lymphocytes (CBC) 1.5 K/uL (0.7-4.9); Basophils % 0.9 % (0-1.3); Eosinophils % 3.3 % (0-4.4); Hematocrit 40.6 % (39.6-49.0); Lymphocytes % 32.9 % (15.3-44.8); MPV 8.9 fL (7.6-11.3); Monocytes % 11.9 % (3.3-12.3); RBC Red Blood Cell Count 4.43 M/uL (4.33-5.43)
[2019-05-15 04:41] LABS: Albumin 3.5 g/dL (3.4-5.0); Bilirubin Direct 0.2 mg/dL (0-0.2); Bilirubin Total 0.8 mg/dL (0.2-1.0); Potassium 3.7 mmol/L (3.5-5.1); Protein, Total 6.6 g/dL (6.4-8.2)
[2019-05-15] MEDS: NA CHLORIDE 0.9% 1,000 ML IV SCH ×2 (04:41→15:26)
[2019-05-15] MEDS: PIPER/TAZO/NS 3.375gm 3.375 GM/100 ML BAG IVPB SCH ×3 (04:42→16:40)
[2019-05-15] MEDS ORDERED: MIDAZOLAM HCL 2 MG/2 ML INJ ONE (12:18)
[2019-05-15] MEDS ORDERED: LIDOCAINE 2% MPF 5 ML VIAL ONE (12:18)
[2019-05-15] MEDS ORDERED: dexAMETHasone 10 MG/ML VIAL ONE (12:18)
[2019-05-15] MEDS ORDERED: PROPOFOL 200 MG/20 ML VIAL IV ONE (12:18)
[2019-05-15] MEDS ORDERED: FENTANYL CITR 250 MCG/5 ML ONE (12:19)
[2019-05-15] MEDS ORDERED: ROCURONIUM 50 MG/5 ML VIAL IV ONE (12:19)
[2019-05-15] MEDS: Ringers Lactate 1,000 ML IV ONE ×2 (12:49→12:50)
[2019-05-15] MEDS ORDERED: GLYCOPYRROLATE 0.2 MG/ML SYR ONE (13:04)
--- NOTE | 2019-05-15 13:26 | P.BOP ---
Preoperative diagnosis: acute cholecystitis, symptomatic cholelithiasis Postoperative diagnosis: same Primary procedure: Laparoscopic cholecystectomy Tooth Cutter Contact Wheel: HAY ROBERTSON (AUTO CRANE DRIVER) Estimated blood loss: <10cc Specimen: gb Findings: as above Anesthesia: General Complications: None Transferred to: Recovery Room Condition: Good
[2019-05-15] MEDS ORDERED: KETOROLAC 30 MG/ML INJ ONE (13:29)
[2019-05-15] MEDS ORDERED: HYDROCODONE/APAP 7.5/325 MG TAB PO PRN (13:34)
[2019-05-15] MEDS ORDERED: ONDANSETRON 4 MG/2 ML VIAL ONE (13:55)
[2019-05-15] MEDS: MORPHINE 4 MG/ML SYR IV PRN (16:44)
--- NOTE | 2019-05-15 20:15 | HP ---
Date of Admission: 05/14/2019 History Of Present Illness: This is a case of a 38-year-old patient, comes to us with epigastric rig ht upper quadrant pain, radiating to the back, associated with nausea and vomiting. The patient was here a week ago, diagnosed with gastritis and eventually sent home from ER, and then patient comes ba with the same symptoms again, this time it is worse. He even had to call an ambulance from his wo rk, come to the ER, diagnosed with cholecystitis, symptomatic cholelithiasis, and surgery was called. He said today he just had some light food and the day before he had some sandwich with cheese. He denies any dysuria, hematochezia, melena. He denies any recent traveling out of the country. Denies any family member sick at home. Allergies: NONE. Social History: He does not smoke. He does not drink alcohol. Medications: None. Family History: Noncontributory. Past Surgical History: Inguinal hernia repair. Review of Systems: Ten-point otherwise unremarkable. Physical Examination: General: The patient is awake and alert. HEENT: Pupils are equal and reactive, anicteric. Neck: Supple. Chest: Clear. Abdomen: Epigastric right upper quadrant pain with [place] sign positive. The rest of the abdomen so ft and depressible. Rectal: Deferred. Genitalia: Deferred. Extremities: Good capillary refill. Neurologic: Cranial nerves 2 through 12 grossly within normal limits. Laboratory Data: Abdominal ultrasound shows a gallbladder wall edema with gallstones, consistent wit h acute cholecystitis. WBC count of 9.4 with hemoglobin of 14.7. Lipase 64. AST elevated to 102. Total bilirubin of 0.6. Potassium 3.7. UA; nitrite negative, blood negative. Assessment: This is a 38-year-old patient, comes to us with increased LFTs, acute cholecystitis, sym ptomatic cholelithiasis, coming to the ER on more than one occasion for epigastric right upper quadra nt pain. The patient will be admitted to the hospital. He wants surgery to be done for his gallblad vasiliy. Since the LFTs are slightly elevated, we are going to get an MRCP. He understands the benefits , alternatives, and risks of laparoscopic, possible open, cholecystectomy. If the rest of the workup appears to be negative with benefits, alternatives, and risks including, but not limited to infectio n, bleeding, damage to adjacent structures, anesthesia complication, choledocholithiasis, bile leak, pancreatitis, [place], and even . He also understands this may not relieve the symptoms, he might ne ed more than one surgical intervention. He understood, signed a consent. TROY/SOBEIDA Voice ID: [id number]
[2019-05-16] MEDS: PIPER/TAZO/NS 3.375gm 3.375 GM/100 ML BAG IVPB SCH ×3 (00:23→16:45)
[2019-05-16] MEDS: NA CHLORIDE 0.9% 1,000 ML IV SCH ×2 (00:23→14:48)
[2019-05-16] MEDS: MORPHINE 4 MG/ML SYR IV PRN (04:40)
--- NOTE | 2019-05-16 18:55 | P.DS ---
Admission Date: 05/14/19 Discharge Date: 05/16/19 Disposition: ROUTINE DISCHARGE Discharge Condition: GOOD Vital Signs/Physical Exam: Temp Pulse Resp BP Pulse Ox 98.5 F 51 20 106/62 97 05/16/19 16:00 05/16/19 16:00 05/16/19 16:00 05/16/19 16:00 05/16/19 16:00 General: Alert, Oriented x3, Cooperative HEENT: PERRLA, EOMI, Sclerae nonicteric Neck: Supple Respiratory: Normal air movement Cardiovascular: No edema, Normal pulses Gastrointestinal: Soft and benign Musculoskeletal: No erythema, No tenderness, No warmth Integumentary: No rashes, No breakdown, No erythema, No warmth, No cyanosis Neurological: Normal speech Laboratory Data at Discharge: WBC 4.4 K/uL (4.3-10.9) D 05/15/19 03:51 Hgb 13.9 g/dL (13.6-17.9) 05/15/19 03:51 Hct 40.6 % (39.6-49.0) 05/15/19 03:51 Plt Count 244 K/uL (152-406) 05/15/19 03:51 Sodium 141 mmol/L (136-145) 05/15/19 03:51 Potassium 3.7 mmol/L (3.5-5.1) 05/15/19 03:51 BUN 7 mg/dL (7-18) 05/15/19 03:51 Creatinine 1.12 mg/dL (0.55-1.3) 05/15/19 03:51 Glucose 94 mg/dL (74-106) 05/15/19 03:51 Total Bilirubin 0.8 mg/dL (0.2-1.0) 05/15/19 03:51 AST 71 U/L (15-37) H 05/15/19 03:51 ALT 103 U/L (12-78) H 05/15/19 03:51 Alkaline Phosphatase 65 U/L (45-117) 05/15/19 03:51 Lipase 114 U/L (73-393) 05/15/19 03:51 Home Medications: Codeine/APAP [Tylenol W/Codeine #3 tab] 1 tab PO Q4HP PRN #20 tab 05/16/19 Sulfamethoxazole/Trimethoprim [Bactrim Ds Tablet] 1 each PO BID #10 tablet 05/16 New Medications: Codeine/APAP [Tylenol W/Codeine #3 tab] 1 tab PO Q4HP PRN #20 tab PRN Reason: Pain Sulfamethoxazole/Trimethoprim [Bactrim Ds Tablet] 1 each PO BID #10 tablet Patient Discharge Instructions: keep area dry for 48h then may shower. Diet: AHA Activity: No lifting more than 10 lbs Followup: Delio Francis MD [ACTIVE - CAN ADMIT] - 1 Week
--- NOTE | 2019-05-17 01:39 | OP ---
Date of Procedure: 05/15/2019 Surgeon: Delio Francis MD Honey Grader And Blender: VALENTINE Mckoy. Preoperative Diagnoses: Acute cholecystitis, symptomatic cholelithiasis, intractable right upper kunal drant pain. Postoperative Diagnoses: Acute cholecystitis, symptomatic cholelithiasis, intractable right upper qu adrant pain. Procedure: Laparoscopic cholecystectomy. Specimen: Gallbladder. Anesthesia: General plus local. Indications: This is a case of a male who comes to us with above diagnoses and fully explained the b enefits, alternatives, and risks of laparoscopic, possible open cholecystectomy, which included but a re not limited to infection, bleeding, damage to adjacent structures, anesthesia complication, choled ocholithiasis, bile leak, pancreatitis, [place], and even . He also understands this may not relieve the symptoms. He might need more than one surgical intervention. He understood, signed a consent. Description Of Procedure: The patient was brought to the operating room, placed in supine position. Anesthesia was done without complication. Abdominal area was prepped and draped in a sterile fashio n. Marcaine 0.5% was injected for local anesthetic, followed by sharp incision of the skin in the crump praumbilical region. Incision was carried down to fascia, which was opened under direct vision. Per itoneum was encountered, opened under direct vision. Vicryl #1 was placed inside the fascia. Kael trocar was carefully introduced and no bleeding was obtained. I proceeded to place 3 more trocars, 5 mm each one of them, in the epigastric area, and right upper quadrant using same technique, which c onsisted of local anesthetic, sharp incision of the skin, and introduction of the trocars under direc t vision. This allowed me to put a grasper in the fundus of the gallbladder, another grasper in the infundibulum, and retracted the gallbladder in the inferolateral fashion, exposing the triangle of Ca lot and obtaining critical view of safety. Cystic duct and cystic artery were clearly isolated and f landen circumferentially, and a connection between those and the gallbladder was clearly identified. I proceeded to ligate those by using at least 3 clips proximal, 1 clip distal, ligation in middle. Sa me was done with the cystic artery. No bile leak. No bleeding. The gallbladder was removed from li jaimee using Bovie cauterizer and removed from abdominal cavity using an EndoCatch through the umbilical incision. The area was inspected once again. No bile leak, no bleeding. At that moment, I proceed ed to remove the trocars under direct vision. Deflated the pneumoperitoneum. Closed the fascia with #1 Vicryl. Irrigated the subcutaneous tissue, and then closed the subcutaneous tissue with 3-0 pourer bull ladle nickie and skin approximated. Sponge count and instrument counts were correct. The patient tolerated t he procedure well. The patient was sent to Recovery in stable condition. TROY/SOBEIDA Voice ID: [id number] Report ID: [id number]
== END 2019-05-16 21:55 | disposition home or self-care (01) ==
LOC: ER 14:15 → ERHOLD 17:56 → 4TH 20:01
PROVIDERS: ADMIT Surgery; ATTEND Surgery
PROC: 0FT44ZZ Resection of Gallbladder, Percutaneous Endoscopic Approach (ICD-10-PCS; principal; 2019-05-15 12:45)
DX: K80.00 Calculus of gallbladder with acute cholecystitis without obstruction (principal)
CPT/HCPCS: 36415; 74181; 76705; 80048; 80076; 81003; 83690; 85025; 88304; 96361; 96365; 99285; G0378; J1100; J2250; J2405; J2543; J2704; J3010; J7030